=== PATIENT | female | born 1955 | race African-American/Black ===

== ENCOUNTER → 2017-02-18 | Outpatient (CLI) | payer OTHER, SELFPAY ==
--- NOTE | 2017-02-18 10:00 | CR ---
EXAMINATION: Left tibia and fibula HISTORY: Fracture COMPARISON: 12/13/2016 TECHNIQUE: 2 views FINDINGS/IMPRESSION: There are old healed fracture deformities of the proximal left tibia and fibula , this results in an irregular articular surface within the tibial plateau noted on the lateral film s. No joint effusion or soft tissue swelling demonstrated. Bone mineralization appears normal to mil dly osteopenic. No acute osseous abnormality.
== END | disposition home or self-care (01) ==
LOC: MW.CHORTHO 07:40
PROVIDERS: ATTEND Orthopaedic Surgery
DX: S82.109D Unspecified fracture of upper end of unspecified tibia, subsequent encounter for closed fracture with routine healing (principal); S82.839D Other fracture of upper and lower end of unspecified fibula, subsequent encounter for closed fracture with routine healing
CPT/HCPCS: 73590-26-LT; 73590-LT